=== PATIENT | female | born 1970 | race Caucasian/White ===

== ENCOUNTER → 2023-09-14 13:56 | Outpatient (REF) | payer OTHER, SELFPAY | LOC: RAD 13:56 | PROVIDERS: ATTENDING PHYSICIAN Nurse Practitioner Adult Health; FAMILY PHYSICIAN Physician Assistant Medical | DX: R90.89 Other abnormal findings on diagnostic imaging of central nervous system (principal); Z86.73 Personal history of transient ischemic attack (TIA), and cerebral infarction without residual deficits | CPT/HCPCS: 93880 ==

== ENCOUNTER → 2023-11-05 07:17 | Outpatient (REF) | payer OTHER, SELFPAY ==
[2023-11-05 08:13] LABS: % Basophils 0.6 % (0-2); % Eosinophils 2.1 % (0-6); % Immature Granulocytes 0.3 % (0-0.5); % Lymphocytes 20.2 % (20.5-51.1); % Monocytes 4.9 % (1.7-9.3); % Neutrophils 71.9 % (42.2-75.2); Absolute Eosinophils 0.1 10^3/uL (0-0.7); Absolute Lymphocytes 1.4 10^3/uL (1.2-3.4); Absolute Monocytes 0.3 10^3/uL (0.1-0.6); Absolute Neutrophils 4.9 10^3/uL (1.4-6.5); Hematocrit 35.8 % (37.0-47.0); Hemoglobin 11.4 g/dL (12.0-16.0); Mean Corp Hgb Conc. 31.8 g/dL (33.0-37.0); Mean Corpuscular Hgb 28.9 pg (27.0-31.0); Mean Corpuscular Volume 90.9 fL (81.0-99.0); Mean Platelet Volume 10.5 fL (7.4-10.4); Nucleated Red Blood Cells % 0 %; Platelet Count 180 10^3/uL (130-400); Red Blood Cell Count 3.94 10^6/uL (4.20-5.40); Red Cell Dist. Width 13.8 % (11.5-14.5); White Blood Cell Count 6.8 10^3/uL (4.8-10.8)
[2023-11-05 08:46] LABS: ALT (SGPT) 28 U/L (0-35); AST (SGOT) 26 U/L (14-36); Albumin 4.1 g/dl (3.5-5.0); Alkaline Phosphatase 91 U/L (38-126); Blood Urea Nitrogen 10 mg/dl (7-17); Calcium 9.9 mg/dl (8.4-10.2); Carbon Dioxide 23 mmol/L (22-30); Chloride 102 mmol/L (98-107); Glucose 198 mg/dl (70-99); HDL Cholesterol 60 mg/dl; LDL Cholesterol, Calculated 65 mg/dl; Potassium 4.2 mmol/L (3.5-5.1); Sodium 137 mmol/L (135-145); Total Bilirubin 0.4 mg/dl (0.2-1.3); Total Cholesterol 146 mg/dl (50-199); Total Protein 6.7 g/dl (6.3-8.2); Triglyceride 107 mg/dl (10-149); Very Low Density Lipoprotein 21 mg/dl (0-30); eGFR > 60.00
[2023-11-05 08:47] LABS: Microalbumin, Random Urine 3.5 mg/dl (0.6-1.7)
[2023-11-05 08:49] LABS: Microalbumin/creatinine Ratio 32.7 mg/g
[2023-11-05 09:54] LABS: Vitamin B12 364 pg/ml (239-931)
[2023-11-05 09:58] LABS: Glycohemoglobin (HgbA1c) 9.6 % (4.0-5.6)
== END ==
LOC: REG 07:17
PROVIDERS: ATTENDING PHYSICIAN Physician Assistant Medical
DX: I10 Essential (primary) hypertension (principal); E11.9 Type 2 diabetes mellitus without complications; E03.8 Other specified hypothyroidism; E53.8 Deficiency of other specified B group vitamins; E11.65 Type 2 diabetes mellitus with hyperglycemia; M79.641 Pain in right hand; M79.642 Pain in left hand
CPT/HCPCS: 36415; 80053; 80061; 82043; 82570; 82607; 83036; 85025

== ENCOUNTER → 2023-12-31 09:24 | Outpatient (REF) | payer OTHER, SELFPAY | LOC: HWWDC 09:24 | PROVIDERS: ATTENDING PHYSICIAN Physician Assistant Medical | DX: Z12.31 Encounter for screening mammogram for malignant neoplasm of breast (principal) | CPT/HCPCS: 77063; 77067 ==

== ENCOUNTER → 2024-02-21 08:22 | Outpatient (REF) | payer OTHER, SELFPAY ==
[2024-02-21 09:16] LABS: % Basophils 0.6 % (0-2); % Eosinophils 2.8 % (0-6); % Immature Granulocytes 0.3 % (0-0.5); % Lymphocytes 38.1 % (20.5-51.1); % Neutrophils 52.2 % (42.2-75.2); Absolute Eosinophils 0.2 10^3/uL (0-0.7); Absolute Lymphocytes 2.4 10^3/uL (1.2-3.4); Absolute Monocytes 0.4 10^3/uL (0.1-0.6); Absolute Neutrophils 3.3 10^3/uL (1.4-6.5); Hematocrit 35.9 % (37.0-47.0); Hemoglobin 12.1 g/dL (12.0-16.0); Mean Corp Hgb Conc. 33.7 g/dL (33.0-37.0); Mean Corpuscular Hgb 30.7 pg (27.0-31.0); Mean Corpuscular Volume 91.1 fL (81.0-99.0); Mean Platelet Volume 10.1 fL (7.4-10.4); Nucleated Red Blood Cells % 0 %; Platelet Count 224 10^3/uL (130-400); Red Blood Cell Count 3.94 10^6/uL (4.20-5.40); Red Cell Dist. Width 13.8 % (11.5-14.5); White Blood Cell Count 6.4 10^3/uL (4.8-10.8)
[2024-02-21 09:48] LABS: ALT (SGPT) 25 U/L (0-35); AST (SGOT) 23 U/L (14-36); Albumin 4.5 g/dl (3.5-5.0); Alkaline Phosphatase 92 U/L (38-126); Blood Urea Nitrogen 20 mg/dl (7-17); Calcium 10.3 mg/dl (8.4-10.2); Carbon Dioxide 25 mmol/L (22-30); Chloride 103 mmol/L (98-107); Glucose 134 mg/dl (70-99); Iron 123 ug/dl (37-170); Potassium 4.6 mmol/L (3.5-5.1); Sodium 138 mmol/L (135-145); Total Bilirubin 0.4 mg/dl (0.2-1.3); Total Protein 7.1 g/dl (6.3-8.2); eGFR > 60.00
[2024-02-21 09:57] LABS: Percent Saturation 24 % (20-50); Total Iron Binding Capacity 498 ug/dl (265-497)
[2024-02-21 10:54] LABS: Ferritin 10.4 ng/ml (11.1-264.0)
[2024-02-21 11:15] LABS: Vitamin B12 238 pg/ml (239-931)
[2024-02-21 11:23] LABS: Glycohemoglobin (HgbA1c) 7.9 % (4.0-5.6)
== END ==
LOC: REG 08:22
PROVIDERS: ATTENDING PHYSICIAN Physician Assistant Medical
DX: E11.9 Type 2 diabetes mellitus without complications (principal); E53.8 Deficiency of other specified B group vitamins; D64.9 Anemia, unspecified
CPT/HCPCS: 36415; 80053; 82607; 82728; 83036; 83540; 83550; 85025

== ENCOUNTER → 2024-03-14 07:47 | Outpatient (REF) | payer OTHER, SELFPAY ==
[2024-03-14 09:18] LABS: FSH 88.3 mIU/ml; Free T4 1.84 ng/dl (0.78-2.19)
[2024-03-14 09:32] LABS: TSH 1.38 uIU/ml (0.47-4.68)
[2024-03-14 09:33] LABS: Estradiol 29.8 pg/ml
[2024-03-14 09:35] LABS: Cortisol, Random 4.8 ug/dl
== END ==
LOC: REG 07:47
PROVIDERS: ATTENDING PHYSICIAN Student in an Organized Health Care Education/Training Program; FAMILY PHYSICIAN Physician Assistant Medical
DX: D35.2 Benign neoplasm of pituitary gland (principal)
CPT/HCPCS: 36415; 82024; 82533; 82670; 83001; 84439; 84443

== ENCOUNTER → 2024-05-23 07:11 | Outpatient (REF) | payer OTHER, SELFPAY ==
[2024-05-23 08:22] LABS: % Basophils 0.5 % (0-2); % Eosinophils 2.2 % (0-6); % Immature Granulocytes 0.3 % (0-0.5); % Lymphocytes 37.9 % (20.5-51.1); % Monocytes 5.5 % (1.7-9.3); % Neutrophils 53.6 % (42.2-75.2); Absolute Eosinophils 0.1 10^3/uL (0-0.7); Absolute Lymphocytes 2.5 10^3/uL (1.2-3.4); Absolute Monocytes 0.4 10^3/uL (0.1-0.6); Absolute Neutrophils 3.5 10^3/uL (1.4-6.5); Hematocrit 36.3 % (37.0-47.0); Hemoglobin 12.1 g/dL (12.0-16.0); Mean Corp Hgb Conc. 33.3 g/dL (33.0-37.0); Mean Corpuscular Hgb 30.5 pg (27.0-31.0); Mean Corpuscular Volume 91.4 fL (81.0-99.0); Mean Platelet Volume 10.3 fL (7.4-10.4); Nucleated Red Blood Cells % 0 %; Platelet Count 210 10^3/uL (130-400); Red Blood Cell Count 3.97 10^6/uL (4.20-5.40); Red Cell Dist. Width 13.2 % (11.5-14.5); White Blood Cell Count 6.5 10^3/uL (4.8-10.8)
[2024-05-23 09:21] LABS: Glycohemoglobin (HgbA1c) 7.8 % (4.0-5.6)
[2024-05-23 09:24] LABS: ALT (SGPT) 27 U/L (0-35); AST (SGOT) 24 U/L (14-36); Albumin 4.4 g/dl (3.5-5.0); Alkaline Phosphatase 83 U/L (38-126); Blood Urea Nitrogen 16 mg/dl (7-17); Calcium 9.6 mg/dl (8.4-10.2); Carbon Dioxide 24 mmol/L (22-30); Chloride 101 mmol/L (98-107); Glucose 133 mg/dl (70-99); HDL Cholesterol 66 mg/dl; Iron 129 ug/dl (37-170); LDL Cholesterol, Calculated 92 mg/dl; Potassium 4.4 mmol/L (3.5-5.1); Sodium 143 mmol/L (135-145); Total Bilirubin 0.3 mg/dl (0.2-1.3); Total Cholesterol 182 mg/dl (50-199); Total Protein 7.1 g/dl (6.3-8.2); Triglyceride 120 mg/dl (10-149); Very Low Density Lipoprotein 24 mg/dl (0-30); eGFR > 60.00
[2024-05-23 09:30] LABS: Free T4 1.07 ng/dl (0.78-2.19)
[2024-05-23 09:36] LABS: Percent Saturation 27 % (20-50); Total Iron Binding Capacity 465 ug/dl (265-497)
[2024-05-23 09:45] LABS: TSH 4.27 uIU/ml (0.47-4.68)
[2024-05-23 09:49] LABS: Ferritin 9.4 ng/ml (11.1-264.0)
[2024-05-23 10:04] LABS: Vitamin B12 535 pg/ml (239-931)
== END ==
LOC: REG 07:11
PROVIDERS: ATTENDING PHYSICIAN Physician Assistant Medical
DX: E11.9 Type 2 diabetes mellitus without complications (principal); E03.8 Other specified hypothyroidism; E53.8 Deficiency of other specified B group vitamins; E61.1 Iron deficiency
CPT/HCPCS: 36415; 80053; 80061; 82607; 82728; 83036; 83540; 83550; 84439; 84443; 85025

== ENCOUNTER → 2024-10-30 08:11 | Outpatient (REF) | payer OTHER, SELFPAY ==
[2024-10-30 09:20] LABS: % Basophils 0.6 % (0-2); % Eosinophils 2.2 % (0-6); % Immature Granulocytes 0.3 % (0-0.5); % Lymphocytes 28.1 % (20.5-51.1); % Monocytes 5.3 % (1.7-9.3); % Neutrophils 63.5 % (42.2-75.2); Absolute Eosinophils 0.2 10^3/uL (0-0.7); Absolute Lymphocytes 1.9 10^3/uL (1.2-3.4); Absolute Monocytes 0.4 10^3/uL (0.1-0.6); Absolute Neutrophils 4.3 10^3/uL (1.4-6.5); Hematocrit 39.5 % (37.0-47.0); Hemoglobin 13.2 g/dL (12.0-16.0); Mean Corp Hgb Conc. 33.4 g/dL (33.0-37.0); Mean Corpuscular Hgb 31.8 pg (27.0-31.0); Mean Corpuscular Volume 95.2 fL (81.0-99.0); Mean Platelet Volume 10.5 fL (7.4-10.4); Nucleated Red Blood Cells % 0 %; Platelet Count 199 10^3/uL (130-400); Red Blood Cell Count 4.15 10^6/uL (4.20-5.40); White Blood Cell Count 6.8 10^3/uL (4.8-10.8)
[2024-10-30 09:38] LABS: ALT (SGPT) 26 U/L (0-35); AST (SGOT) 18 U/L (14-36); Albumin 4.4 g/dl (3.5-5.0); Alkaline Phosphatase 122 U/L (38-126); Blood Urea Nitrogen 25 mg/dl (7-17); Calcium 10.6 mg/dl (8.4-10.2); Carbon Dioxide 24 mmol/L (22-30); Chloride 104 mmol/L (98-107); Glucose 307 mg/dl (70-99); Iron 99 ug/dl (37-170); Potassium 4.9 mmol/L (3.5-5.1); Sodium 140 mmol/L (135-145); Total Bilirubin 0.6 mg/dl (0.2-1.3); Total Protein 7.2 g/dl (6.3-8.2); eGFR > 60.00
[2024-10-30 09:45] LABS: Microalbumin, Random Urine 12.4 mg/dl (0.6-1.7)
[2024-10-30 09:47] LABS: Percent Saturation 19 % (20-50); Total Iron Binding Capacity 499 ug/dl (265-497)
[2024-10-30 10:12] LABS: Ferritin 18.1 ng/ml (11.1-264.0)
[2024-10-30 10:26] LABS: Vitamin B12 > 1000 pg/ml (239-931)
[2024-10-30 11:28] LABS: Glycohemoglobin (HgbA1c) 8.5 % (4.0-5.6)
== END ==
LOC: REG 08:11
PROVIDERS: ATTENDING PHYSICIAN Physician Assistant Medical
DX: E03.8 Other specified hypothyroidism (principal); E11.9 Type 2 diabetes mellitus without complications; E53.8 Deficiency of other specified B group vitamins; E61.1 Iron deficiency
CPT/HCPCS: 36415; 80053; 82043; 82570; 82607; 82728; 83036; 83540; 83550; 85025

== ENCOUNTER → 2025-01-06 09:16 | Outpatient (REF) | payer OTHER, SELFPAY ==
[2025-01-06 10:07] LABS: ALT (SGPT) 27 U/L (0-35); AST (SGOT) 20 U/L (14-36); Albumin 4.5 g/dl (3.5-5.0); Alkaline Phosphatase 82 U/L (38-126); Blood Urea Nitrogen 32 mg/dl (7-17); Carbon Dioxide 23 mmol/L (22-30); Chloride 106 mmol/L (98-107); Glucose 163 mg/dl (70-99); Potassium 4.5 mmol/L (3.5-5.1); Sodium 141 mmol/L (135-145); Total Bilirubin 0.5 mg/dl (0.2-1.3); Total Protein 7.3 g/dl (6.3-8.2); eGFR > 60.00
== END ==
LOC: REG 09:16
PROVIDERS: ATTENDING PHYSICIAN Physician Assistant Medical
DX: E11.9 Type 2 diabetes mellitus without complications (principal)
CPT/HCPCS: 36415; 80053; 83036

== ENCOUNTER → 2025-03-09 07:53 | Outpatient (REF) | payer OTHER, SELFPAY ==
[2025-03-09 10:17] LABS: Cortisol, Random 6.6 ug/dl
== END ==
LOC: REG 07:53
PROVIDERS: ATTENDING PHYSICIAN Student in an Organized Health Care Education/Training Program; FAMILY PHYSICIAN Physician Assistant Medical
DX: D35.2 Benign neoplasm of pituitary gland (principal)
CPT/HCPCS: 36415; 82024; 82533; 84439; 84443

== ENCOUNTER → 2025-04-19 07:10 | Outpatient (REF) | payer OTHER, SELFPAY ==
--- NOTE | 2025-04-19 13:51 | EEG.RPT ---
Electroencephalogram Report
Recording
Date of EE04/19/25
Type of EEG: Routine
Length of EEG recordin minutes
Done with Video Recording: Yes
Patient Status: Inpatient
Recording Conditions: Awake, Drowsy and Asleep
Hyperventilation Performed: Yes
Photic Stimulation Performed: Yes
Report
LESS THAN 1 HOUR EEG INTERPRETATION:
Unremarkable EEG for age
CLINICAL CORRELATION:
A normal EEG does not rule out a diagnosis of epilepsy. If clinical suspicion for seizure persists, a prolonged recording may be warranted.
Clinical correlation is advised.
METHODS:
A 21 channel digitized electroencephalogram (EEG) was performed using the 10/20 international system of electrode placement and one-lead of ECG recorded. The [employer] quantitative EEG system was utilized.
ELECTROENCEPHALOGRAPHER IMPRESSION(S):
Quality of study
Good
Background
There was an unremarkable anterior-posterior voltage gradient of alpha frequency.
With eye opening the background activity changed to a low voltage mixture of frequencies.
There were no significant asymmetries of background activity noted.
Sleep
Drowsiness present
Stage 1 present
Stage 2 present
Hyperventilation
No activation
Photic Stimulation
No activation
ECG
Normal sinus rhythm
== END ==
LOC: EEG 07:10
PROVIDERS: ATTENDING PHYSICIAN Nurse Practitioner Adult Health; FAMILY PHYSICIAN Physician Assistant Medical
DX: G45.4 Transient global amnesia (principal); R41.3 Other amnesia
CPT/HCPCS: 95813

== ENCOUNTER → 2025-05-15 19:03 | Outpatient (REF) | payer OTHER, SELFPAY | LOC: WDC 19:03 | PROVIDERS: ATTENDING PHYSICIAN Physician Assistant Medical | DX: Z12.31 Encounter for screening mammogram for malignant neoplasm of breast (principal) | CPT/HCPCS: 77063; 77067 ==

== ENCOUNTER → 2025-06-13 08:20 | Outpatient (REF) | payer OTHER, SELFPAY | LOC: PAVMRI 08:20 | PROVIDERS: ATTENDING PHYSICIAN Nurse Practitioner Adult Health; FAMILY PHYSICIAN Physician Assistant Medical | DX: G45.4 Transient global amnesia (principal); R41.3 Other amnesia; G93.5 Compression of brain; R90.89 Other abnormal findings on diagnostic imaging of central nervous system | CPT/HCPCS: 70553; A9575 ==

== ENCOUNTER → 2025-06-28 09:06 | Outpatient (REF) | payer OTHER, SELFPAY ==
--- NOTE | 2025-06-28 11:16 | PTCARENOTE ---
Pt here for outpatient EEG. Called to room after EEG placement , pt did not remember why she was here or why EEG leads were placed (a change in status per molecular technologist). Alert and oriented but has no recollection of driving to hospital or why EEG leads
were placed. Pt states she does have 'amnesia episodes at times', does not remember when last one was or how frequent the episodes occur. Pupils equal bilaterally,reactive bilaterally, family partner equal bilaterally, no drift or leg weakness noted. No
facial drooping noted. 142/84, heart rate 76/minute, respiration 20/minute. Ambulated to wheelchair easily, transferred to ED via wheelchair (as pt drove herself here). Report given to ED . Dr. Sales notified by molecular technologist Abby of status.
--- NOTE | 2025-06-28 15:40 | EEG.RPT ---
Electroencephalogram Report
Recording
Date of EE06/28/25
Type of EEG: Routine
Length of EEG recordin hour and 45 minutes
Done with Video Recording: Yes
Patient Status: Inpatient
Recording Conditions: Awake, Drowsy and Asleep
Hyperventilation Performed: Yes
Photic Stimulation Performed: Yes
Report
GREATER THAN 1 HOUR EEG INTERPRETATION:
Unremarkable EEG for age
CLINICAL CORRELATION:
A normal EEG does not rule out a diagnosis of epilepsy. If clinical suspicion for seizure persists, a prolonged recording may be warranted.
Clinical correlation is advised.
METHODS:
A 21 channel digitized electroencephalogram (EEG) was performed using the 10/20 international system of electrode placement and one-lead of ECG recorded. The [employer] quantitative EEG system was utilized.
ELECTROENCEPHALOGRAPHER IMPRESSION(S):
Quality of study
Good
Background
There was an unremarkable anterior-posterior voltage gradient of alpha frequency.
With eye opening the background activity changed to a low voltage mixture of frequencies.
There were no significant asymmetries of background activity noted.
Sleep
Drowsiness present
Stage 1 present
Stage 2 present
Hyperventilation
No activation
Photic Stimulation
No activation
ECG
Normal sinus rhythm
== END ==
LOC: EEG 09:06
PROVIDERS: ATTENDING PHYSICIAN Nurse Practitioner Adult Health; FAMILY PHYSICIAN Physician Assistant Medical
DX: G45.4 Transient global amnesia (principal); R41.3 Other amnesia
CPT/HCPCS: 95812

== ENCOUNTER 2025-06-28 10:28 | Emergency (ER) | payer OTHER, SELFPAY ==
[2025-06-28 10:43] VITALS: BP 170/100
--- NOTE | 2025-06-28 11:29 | CON.NEURO4 ---
Addendum entered and electronically signed by Anderson Sales MD 06/28/25 15:38:
Studies reviewed.
I have personally examined the patient. I reviewed and agree with the BOARD MILL SUPERVISOR's Note.
My addenda:
Awake, alert, interactive. No acute distress. Patient unable to recall information after being provided same after 5 minutes.
Speech intact.
Follows 2-step requests w/o difficulty. No tremor.
Extra-ocular movements grossly intact.
Facial movements full and symmetric. Hearing intact to normal conversational volume.
Normal UE movements bilaterally.
Neck: full ROM.
Chest: no dyspnea
Heart: no JVD
Ext: (-) Clubbing, (-) Cyanosis, (-) Edema
IMPRESSIONS/RECOMMENDATIONS:
Abrupt onset of change in memory, recurrent. Most likely due to either transient global amnesia or migraine with aura based on the patient's current mild headache provide rizatriptan
EEG from ambulatory study was unchanged and normal.
Patient also has a chronic lacunar cerebellar stroke by prior neuroimaging
Provide rizatriptan
Check greater than 1 hour EEG, may discontinue ambulatory EEG
Eventual outpatient CTA head and neck to determine if the patient has a posterior circulation stenosis producing risk for recurrent stroke
Outpatient consideration for initiating aspirin and atorvastatin
D/W patient
All questions answered.
Will continue to follow as outpatient.
Original Note:
Documented by User: Lynnette Cagle NP 06/28/25 15:33
Consultation - Neurology 4
-
CONSULTING PHYSICIAN: Anderson Sales MD
REFERRING PHYSICIAN: RIGO/Irwin Oneil PA-C
DICTATED BY: LILY Downing
DATE/TIME OF REQUEST: 06/28/25
DATE/TIME OF CONSULTATION: 06/28/25
Reason for Consultation: Amnesia
History of Present Illness:
This is a 55-year-old female who has presented to the hospital from an outpatient EEG imaging with report of amnesia. Patient is followed by our outpatient Neurology service for similar symptoms in the past.
From previous evaluation by Neurology Dr. Alicea on 05/21/25:
'Patient is a 53-year-old woman with a past medical history of diabetes, hypothyroidism, migraine with aura presented to hospital with sudden onset mental status change and significant amnesia. Patient has been in her normal state of health
recently and went to bed yesterday feeling fine with no obvious health problems yesterday. Her notes that he was out working garage around 10 AM this morning when she complained to him that she did not feel right. She had some odd
behaviors and had repetitive questioning for her asking many times if she taken her medication earlier in the day or not. Otherwise she has had a minor headache in the left frontal region and had around 1 episode of vomiting at home and 1
here in the ER. No focal weakness of the face arms or legs has been seen and no recent head or neck trauma. Patient has no history of stroke or TIA does not take any antiplatelet or anticoagulants at baseline. She has been under increased stress
due to a class she was taking for work. Normally she has very good memory. Nothing like this is ever happened before. She does describe a history of infrequent migraine with visual aura. No vision changes today. No use of any recent alcohol or
recreational drugs. Patient still having some repetitive question for her while here in the ER.'
From most recent outpatient evaluations by Neurology LILY Edwards:
'(10/15/2023)
Pt seen in the office. She has been feeling well since last appointment. Headaches are well-controlled amitriptyline 10 mg. She did have repeated MRI with attention to the pituitary gland on 07/29/2023 which showed a heterogeneous 1.7 cm anterior
pituitary gland focus could be related to heterogeneous pituitary gland enhancement versus a pituitary adenoma. Recommend correlation with pituitary hormone levels. No acute infarction, intracranial hemorrhage, cerebral mass or abnormal cerebral
enhancement. She has not yet followed up with endocrinology. On most recent MRI they report tonsils are in normal location. She has continued on aspirin 81 mg for incidental stroke noted on previous MRI brain. This was also noted on most recent MRI
brain. She continues on statin therapy. No new stroke symptoms. No new episodes of memory loss or confusion.
(04/11/2025)
Pt seen in the office she had another episode of acute confusion on 04/07/2025 around 2pm she reported that she was not feeling well to her . He stated that she had a look of confusion and had repetitive questioning.Did not recall
dressing. Was confused about date. Episode lasted about 4-5 hours. By 7pm she felt well enough to text her friend what had happened. Since event, she has had headaches. She had stopped taking amitriptyline a few weeks ago as headaches seemed to
improve, but restarted taking it again once headache returned. She did not go to the hospital for evaluation.
(06/25/2025)
Pt seen in the office today. Since her last visit she Has not had any additional events of confusion or amnesia. MRI completed on 06/13/2025 with no acute intracranial abnormality. EEG completed n 04/19/2025 was unremarkable for age. She continues to
take ASA. Headaches are improved with restarting amitriptyline.'
MRI brain imaging in 2022 after first amnesia event demonstrated an old left cerebellar ischemic infarct. MRI brain from 2022 and 06/13/2025 following amnesia events were negative for any acute abnormalities. Patient went for an outpatient 24 EEG
setup this morning (06/28/25) in her usual state. After EEG setup was complete she had a sudden complete change in mental status and had no recollection of how she came to the hospital or the month/year. EEG recording during this event was normal. In
the ER, patient reports a mild right-sided headache that she rates a 2/10. She denies any photo/phonophobia, nausea, or vomiting. She denies any dizziness, vision changes, speech/swallow difficulty, numbness, and tingling. She can recall info from
the past including previous episodes of TGA, and reports that she thinks she came here for an EEG, but otherwise cannot recall the events of today. Symptoms improved significantly after rizatriptan was provided.
Past Medical History: Recurrent TGA, tiny chronic left cerebellar ischemic stroke, migraine with aura, pituitary macroadenoma, endometriosis, hypertension, hypothyroidism, Non insulin dependent diabetes mellitus, iron deficiency, b12 deficiency,
ALEX, renal calculi
Surgical History: Laparoscopic cholecystectomy. Tonsillectomy and adenoidectomy. section. Breast reduction, D and C for miscarriage and multiple arthroscopies. Laparoscopic lysis of adhesions, Laparotomy with supracervical hysterectomy
and left salpingo-oophorectomy, R carpal tunnel release.
Family History: Father- Alzheimer's disease.
Social History: No tobacco no significant alcohol use no use of any recreational drugs
Allergies: Sulfa
Home Medications: See below.
Review of Symptoms:
Patient denies any fever, chest pain, shortness of breath, GI or symptoms.
�Per the HPI.�All systems are reviewed negative except above.
Physical Exam:
The patient is afebrile, abdomen is nondistended, breathing is unlabored, skin is warm and dry, no edema.
NIH Stroke Scale:
I performed the NIH stroke scale on the patient on 06/28/25 at 1115. The patient scored 2 points on the NIH stroke scale assessment, which were assigned as follows:
Neurologic Examination:
The patient is awake, alert and oriented to person and place, not month/year. Can recall that she originally came here for an EEG. She is able to follow commands and answer questions appropriately. There is no aphasia or dysarthria. On cranial
nerve assessment, pupils are 3 mm bilateral, round and reactive to light and accommodation. Visual clark are full. Extraocular movements are intact. Facial sensations are intact and bilaterally symmetrical, there is no facial asymmetry. Hearing is
intact bilaterally to normal conversation volume. Tongue palate and uvula are midline. Sternocleidomastoid strengths are full bilaterally. Motor strengths are 5/5 bilateral upper and lower extremities on medical research [place] scale. There is no
drift or involuntary movement noted. There was no extinction noted on double simultaneous stimulation. Coordination is intact by finger to nose bilaterally.
Lab Results: See below.
Neuro Imaging:
1. EEG 06/28/25: final report pending.
Differentials for the patient's presentation include:
1. Recurrent amnesia; etiology is likely confusional migraine vs transient global amnesia. EEG during event was negative for seizure. Very low concern for stroke/TIA given recurrent similar episodes with negative MRI brain imaging.
Patient has the following risk factors for their symptoms: migraines, recurrent episodes
IV Tenecteplase/IAT candidacy: Not a candidate due to history of similar episodes in the past, improvement of symptoms, low concern for stroke.
Recommendations:
-Provide rizatriptan 10mg x1 now.
-Consideration for initiating aspirin 81mg daily and atorvastatin 40mg given old tiny left cerebellar ischemic infarct.
-Repeat MRI brain noncontrast as an outpatient.
-Provide patient with a stroke education packet.
Discussed patient care with: Dr. Sales, the patient
Vital Signs and Labs
-
Vital Signs and Labs:
Vital Signs
Temp Pulse Resp BP Pulse Ox
98.1 F 112 18 146/93 99
06/28/25 10:43 06/28/25 13:28 06/28/25 13:28 06/28/25 13:28 06/28/25 13:28
Medications
-
Home Medications
�Medication �Instructions �Recorded
cetirizine 10 mg tablet 10 mg PO DAILYPRN PRN allergies 04/10/16
carvedilol 25 mg tablet 25 mg PO BID Blood Pressure 05/21/23
Held on 05/22/23.
Instructions: restart when
BP>140/90
dulaglutide 1.5 mg/0.5 mL 1.5 mg SC QWEEK Diabetes 05/21/23
subcutaneous pen injector
(Trulicity)
levothyroxine 125 mcg tablet 125 mcg PO DAILY Thyroid 05/21/23
metformin 500 mg tablet,extended 1,000 mg PO BID Diabetes 05/21/23
release 24 hr
spironolactone 50 mg tablet 50 mg PO DAILY Blood Pressure 05/21/23
Held on 05/22/23.
Instructions: restart when
BP>140/90
valsartan 160 mg tablet 160 mg PO DAILY Blood Pressure 05/21/23
Held on 05/22/23.
Instructions: restart when
BP>140/90
rizatriptan 10 mg tablet (Maxalt) 10 mg PO ONCE PRN migraine 06/28/25
headache #10 tabs
NIH Stroke Score
Subsequent NIH Scale
Date of Subsequent NIH Scale: 06/28/25
Time of Subsequent NIH Scale: 11:15
NIH Stroke Score
Level of Consciousness: 0 - Alert
LOC Questions: 2-Neither correct
LOC Commands: 0-Performs both correctly
Best Horizontal Gaze: 0-Normal
Visual Clark: 0=Normal, no visual loss
Facial Palsy: 0=Normal, symmetrical
Motor - Right Arm: 0=No drift 10 seconds
Motor - Left Arm: 0=No drift 10 seconds
Motor - Right Le-No drift 5 seconds
Motor - Left Le-No drift 5 seconds
Limb Ataxia: 0-Absent
Sensation: 0-Normal
Best Language: 0-No aphasia
Dysarthria: 0-Normal
Extinction and Inattention: 0-No abnormality
NIH Total Score:: 2

Documented by User: Anderson Sales MD 06/28/25 15:35
NIH Stroke Score
NIH Stroke Score
NIH Total Score:: 2
--- NOTE | 2025-06-28 11:40 | ED.GENMED ---
History of Present Illness
General
Chief Complaint: Change in Mental Status
Time Seen by Provider: 06/28/25 11:07
History of Present Illness
History of Present Illness:
55-year-old female arrives from outpatient EEG due to sudden onset of confusion. She has a history of transient global amnesia and when the EEG began, the tech reports that she suddenly began asking repetitive questions became very tearful. The
patient can provide no history at this time. She denies any pain at present but is unable to answer questions regarding why she is in the hospital current events
Past History
Past History
ED Past Medical History: HTN, NIDDM, Hypothyroidism and Other (PCL, anemia)
ED Past Surgical History: Other
Social History
Tobacco: Non-smoker
Personal:
Review of Systems
Review of Systems
Allergies reviewed?: Yes
All Other Systems: ROS reviewed and negative except as documented in HPI and ROS
Phy Exam
Physical Exam
Physical Exam:
GEN: Well appearing, NAD, WDWN
HEENT: Oral mucosa moist, no scleral icterus, no nasal congestion
Cardiac: Regular rate
Lung: No respiratory distress, no tachypnea
MSK: No gross deformity or injuries
Skin: Good color, no pallor or jaundice, no rashes
Neuro: Alert, follows commands, disoriented to place and time as well as events, moves all extremities freely
Psych: Calm, cooperative
Course
Orders/Labs/Results
Orders:
Orders
06/28/25 11:32
Rizatriptan Orally Disintegrat [Maxalt On Site Nurse (Orally Disintegrating)] 10 mg PO ONCE ONE
Vital Signs
Initial and Last Documented VS:
Initial Vital Signs
Temp Pulse Resp BP Pulse Ox
98.1 F 109 16 170/100 98
06/28/25 10:43 06/28/25 10:43 06/28/25 10:43 06/28/25 10:43 06/28/25 10:43
Last Documented Vital Signs
Temp Pulse Resp BP Pulse Ox
98.1 F 112 18 146/93 99
06/28/25 10:43 06/28/25 13:28 06/28/25 13:28 06/28/25 13:28 06/28/25 13:28
MDM/Problems Addressed
MDM/Problems Addressed:
Patient was seen in consultation by neurology. EEG was reviewed showing no epileptiform activity. Working diagnosis at this time is a confusional migraine, she was treated with rizatriptan and gradually improved back to neurologic baseline. Will
follow-up as an outpatient in the neurology office and I will prescription for rizatriptan
*Pulse Oximetry
SaO2: 98
Oxygen Mode of Delivery: Room air
Patient hypoxic: no
*Critical Care Note
Total Time (30-74mins, 75-104mins- exclusive of procedures): Not Applicable
Update Note
Update Note:
Discussed case with neurology, initial EKG normal. Plan for continued EEG monitoring x 1 hour, will give triptan for presumed confusional migraines, will reassess
ED Attending Note
-
Portions of this chart may have been created with voice recognition software.� Occasional wrong word or��sound alike� substitutions may have occurred due to the inherent limitations of voice recognition software.
Discharge Plan
Departure
Patient Disposition: Home (Routine Discharge)
Date of Disposition: 06/28/25
Time of Disposition: 13:21
Patient with high blood pressure during this ER visit?: No
Discharge Problem:
Acute confusional migraine
Instructions: Altered Mental Status (DC)
Prescriptions:
New
rizatriptan [Maxalt] 10 mg tablet
10 mg PO ONCE PRN (Reason: migraine headache) Qty: 10 0RF
No Action
cetirizine 10 MG tablet
10 mg PO DAILYPRN PRN (Reason: allergies)
carvedilol 25 mg Tablet
25 mg PO BID
levothyroxine 125 mcg Tablet
125 mcg PO DAILY
metformin 500 mg Tablet Extended Release 24 Hr
1,000 mg PO BID
spironolactone 50 mg Tablet
50 mg PO DAILY
valsartan 160 mg Tablet
160 mg PO DAILY
Trulicity 1.5 mg/0.5 mL Pen Injector
1.5 mg SC QWEEK
Patient Comments:
05/21/2023, patient and patient's spouse are unsure of the exact day that this medication is taken; patient's spouse believes it to be taken on either Saturdays or Sundays.
Referrals:
Anderson Sales MD [Active, Neurology]
Shaila Seymour PA-C [Family Provider, Internal Medicine]
Interventions
Interventions:
*Risk Screen - Suicide Last Done: 06/28/25 10:43
*General Assessment Last Done: 06/28/25 10:43
*Neglect/Abuse Screening Last Done: 06/28/25 10:43
*ED COVID-19 Vaccine History Last Done: 06/28/25 10:43
*ED Influenza Vaccine History Last Done: 06/28/25 10:43
*Nursing Disposition Last Done: 06/28/25 13:29
ED- Pulmonary Assessment Last Done: 06/28/25 11:30
ED- Neurological Assessment Last Done: 06/28/25 11:30
ED- Cardiac Assessment Last Done: 06/28/25 11:30
Discharge Date and Time
Discharge Date/Time: 06/28/25 13:29
Print Language: PANAMANIAN
[2025-06-28] MEDS: MAXALT MLT (ORALLY DISINTEGRATING) 10 MG PO (11:46)
[2025-06-28 13:28] VITALS: BP 146/93
== END 2025-06-28 13:29 | disposition home or self-care (01) ==
LOC: EMR 10:28
PROVIDERS: EMERGENCY PHYSICIAN Emergency Medicine; FAMILY PHYSICIAN Physician Assistant Medical
DX: G43.809 Other migraine, not intractable, without status migrainosus (principal); I10 Essential (primary) hypertension; E03.9 Hypothyroidism, unspecified; E11.9 Type 2 diabetes mellitus without complications; G47.33 Obstructive sleep apnea (adult) (pediatric)
CPT/HCPCS: 99283

== ENCOUNTER → 2025-07-10 09:36 | Outpatient (REF) | payer OTHER, SELFPAY | LOC: RAD 09:36 | PROVIDERS: ATTENDING PHYSICIAN Physician Assistant Medical | DX: R31.0 Gross hematuria (principal) | CPT/HCPCS: 76770 ==